=== PATIENT | female | born 1975 | race African-American/Black ===

== ENCOUNTER 2017-12-26 21:43 | Inpatient (IN) | payer SELFPAY ==
[~2017-12-26] VITALS: Ht 165.1 cm; Wt 76.2 kg
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
[2017-12-26] MEDS ORDERED: IV RINGERS SOLUTION,LACTATED 1,000 ML IV SCH (22:00)
--- NOTE | 2017-12-26 22:12 | EKG ---
[address] [address] Test Date: 2017-12-26 Test Time: 22:08:03 Pat Name: MASON GODOY Department: Room: Gender: F Manager Critical Care Unit: : [id number] Requested By: JOVANNI RAPP Order Number: [id number] Reading MD: Blayne Childress Measurements Intervals [place] Rate: 74 P: 34 MA: 150 QRS: 24 QRSD: 82 T: 32 QT: 398 QTc: 442 Interpretive Statements SINUS RHYTHM Electronically Signed On 12-28-2017 11:09:41 CDT by Blayne Childress
[2017-12-26] MEDS ORDERED: MAGNESIUM HYDROXIDE 2,400 MG/30 ML ORAL.SUSP. PO ONE (22:15)
[2017-12-26] MEDS ORDERED: FAMOTIDINE 20 MG/2 ML VIAL IVP ONE (22:15)
[2017-12-26] MEDS ORDERED: ONDANSETRON PF 4 MG/2 ML VIAL. IV ONE (22:15)
[2017-12-26 22:33] LABS: BILIRUBIN,URINE NEG (NEG); CLARITY,URINE CLOUDY; COLOR,URINE STRAW; GLUCOSE,URINE NEG (NEG); NITRITE,URINE NEG (NEG); UROBILINOGEN,URINE 0.2 mg/dL (0.2 mg/dL); WBC,URINE 20-40 /HPF (0-4)
[2017-12-26 22:34] LABS: BACTERIA,URINE FEW /HPF (0-FEW); SQUAMOUS EPITHELIAL CELL,UR FEW /LPF
[2017-12-26 22:42] LABS: BASO % 1 % (0-3); EOS % 1 % (0-3); HEMATOCRIT 39.1 % (36.0-47.0); LYMPH # 1.7 x10^3/uL (1.0-4.8); LYMPH % 42 % (24-48); MEAN CORPUSCULAR HEMOGLOBIN 31 pg (25-35); MEAN CORPUSCULAR HGB CONC 33 g/dL (31-37); MEAN CORPUSCULAR VOLUME 92 fL (79-100); MONO # 0.5 x10^3/uL (0.0-1.1); MONO % 12 % (0-9); NEUT # 1.8 x10^3uL (1.8-7.7); NEUT % 45 % (31-73); PLATELET COUNT 342 x10^3/uL (140-400); RED BLOOD COUNT 4.24 x10^6/uL (3.50-5.40); RED CELL DISTRIBUTION WIDTH 16.7 % (11.5-14.5); WHITE BLOOD COUNT 4.1 x10^3/uL (4.0-11.0)
[2017-12-26] MEDS ORDERED: FOLIC ACID 5 MG/ML SYRINGE for ER IV ONE (22:49)
[2017-12-26] MEDS ORDERED: MVI, ADULT NO.4 WITH VIT K 10 ML VIAL IV ONE (22:49)
[2017-12-26] MEDS ORDERED: THIAMINE 200 MG/2 ML VIAL. IV ONE (22:49)
[2017-12-26 22:57] LABS: AMPHETAMINE/METHAMPHETAMINE NEG (NEG); BARBITURATES NEG (NEG); BENZODIAZEPINES NEG (NEG); CANNABINOIDS NEG (NEG); COCAINE POS (NEG); METHADONE NEG (NEG); OPIATES NEG (NEG); PHENCYCLIDINE NEG (NEG)
[2017-12-26 22:58] LABS: ALBUMIN 3.6 g/dL (3.4-5.0); CALCIUM 9.1 mg/dL (8.5-10.1); CREATININE 1.2 mg/dL (0.6-1.0); DIRECT BILIRUBIN 0.1 mg/dL (0.0-0.2); GFR 59.3; TOTAL BILIRUBIN 0.1 mg/dL (0.2-1.0); TOTAL PROTEIN 7.3 g/dL (6.4-8.2)
[2017-12-26] MEDS ORDERED: MVI, ADULT NO.4 WITH VIT K 10 ML, FOLIC ACID SYRINGE for ER 1 MG, THIAMINE INJ 100 MG i... IV ONE ×4 (23:00)
[2017-12-26] MEDS ORDERED: MORPHINE SULFATE 10 MG/ML SYRINGE. SQ ONE (23:30)
[2017-12-26] MEDS ORDERED: cefTRIAXone IM 1 GM VIAL IM ONE (23:30)
[2017-12-26] MEDS ORDERED: IOHEXOL 240 MG/ML 50ML VIAL. ONE (23:35)
[2017-12-26] MEDS ORDERED: ONDANSETRON PF 4 MG/2 ML VIAL. IV PRN (23:45)
[2017-12-26] MEDS ORDERED: MORPHINE SULFATE 10 MG/ML SYRINGE. SQ PRN (23:45)
[2017-12-27] MEDS ORDERED: LORazepam 2 MG/ML VIAL IV PRN
[2017-12-27] MEDS ORDERED: IOHEXOL 300 MG/ML 75 ML VIAL. IV ONE (00:30)
[2017-12-27] MEDS ORDERED: IOHEXOL 240 MG/ML 50ML VIAL. PO ONE (00:30)
--- NOTE | 2017-12-27 01:33 | RAD ---
PQRS Compliance statement: One or more of the following individualized dose reduction techniques were utilized for this examination: 1. Automated exposure control. 2. Adjustment of the mA and/or kV according to patient size. 3. Use of iterative reconstruction technique. Indication:abdominal pain, constipation TECHNIQUE: CT abdomen and pelvis with IV contrast with multiplanar reformats. COMPARISON: None FINDINGS: Heart is normal in size. No pericardial or pleural effusion. Clear lung bases. Liver, spleen, gallbladder, pancreas, adrenals and kidneys are within normal limits. No enlarged retroperitoneal or pelvic adenopathy. Small fat-containing right inguinal hernia. No free pelvic fluid or ascites. No bowel obstruction. Normal appendix. Omental fat-containing epigastric hernia is seen with neck measuring 1.7 cm with. The hernia sac measures 3.3 x 1.3 cm. Anteverted uterus. Urinary bladder within normal limits., Shape low attenuating lesion is seen in the right aspect of the urethra most likely a urethral diverticulum. There is short segment narrowing of the proximal transverse colon without pericolic inflammatory changes. No suspicious bony lesion. IMPRESSION: 1. Small epigastric hernia containing omental fat. 2. Short segment narrowing of the proximal transverse colon most likely secondary to suboptimal distention although mild colitis not ruled out. 3. Urethral diverticulum. Electronically signed by: Gabriel Soto DO (12/27/2017 1:30 AM) [facility]
[2017-12-27] MEDS: IV RINGERS SOLUTION,LACTATED 1,000 ML IV SCH ×3 (02:15→12:30)
[2017-12-27 03:00] VITALS: BP 188/80
--- NOTE | 2017-12-27 03:53 | NUR ---
The patient, MASON GODOY, 42 y/o, F admitted by GIL MALLORY MD, was given written information regarding hospital policies, unit procedures and contact persons. Patient stated that she started to have abdominal pain in her lower abdomen yesterday. She had ate a lot of tacos prior to coming to hospital and reports drinking a liter of gin. Patient stated that she drinks almost every day and has for the last 10 years. Patient denies ever having withdrawl symptoms. Orders reviewed. Belongings with patient. Will continue to monitor. Valuables were checked and left with patient.
[2017-12-27] MEDS ORDERED: ACET325T9 PO (03:56)
[2017-12-27] MEDS ORDERED: IBUP400T18 PO (03:57)
[2017-12-27 05:58] VITALS: BP 152/72
[2017-12-27 06:27] LABS: BASO # 0.1 x10^3/uL (0.0-0.2); BASO % 2 % (0-3); EOS # 0.1 x10^3/uL (0.0-0.7); EOS % 2 % (0-3); HEMATOCRIT 39.5 % (36.0-47.0); LYMPH # 2.2 x10^3/uL (1.0-4.8); LYMPH % 47 % (24-48); MEAN CORPUSCULAR HEMOGLOBIN 31 pg (25-35); MEAN CORPUSCULAR HGB CONC 33 g/dL (31-37); MEAN CORPUSCULAR VOLUME 93 fL (79-100); MONO # 0.6 x10^3/uL (0.0-1.1); MONO % 13 % (0-9); NEUT # 1.7 x10^3uL (1.8-7.7); NEUT % 37 % (31-73); PLATELET COUNT 341 x10^3/uL (140-400); RED BLOOD COUNT 4.25 x10^6/uL (3.50-5.40); RED CELL DISTRIBUTION WIDTH 16.8 % (11.5-14.5); WHITE BLOOD COUNT 4.7 x10^3/uL (4.0-11.0)
[2017-12-27 06:31] LABS: CALCIUM 8.4 mg/dL (8.5-10.1); GFR 73.2; POTASSIUM 3.7 mmol/L (3.5-5.1)
[2017-12-27] MEDS ORDERED: IPRATRPIUM/ALBUTEROL 0.5/2.5MG 3 ML NEBU. NEB SCH (08:00)
--- NOTE | 2017-12-27 08:33 | RAD ---
Acute abdomen series with chest, 12/26/2017: HISTORY: Lower abdominal pain, constipation Surgical clips overlie the left midabdomen. Gas is present in large and small bowel without significant bowel distention. A couple of small, scattered nonspecific air-fluid levels are noted. No free air seen in the abdomen. There is no evidence organomegaly. There is a sclerotic focus in the right iliac bone most compatible with a bone island. The heart is mildly enlarged. The pulmonary vascularity is normal. No pulmonary infiltrate is seen. There is no evidence of pleural fluid. IMPRESSION: 1. Several small scattered air-fluid levels in the GI tract may reflect a mild ileus. 2. Postsurgical change in the left midabdomen. Electronically signed by: Oscar Tillman MD (12/27/2017 8:30 AM) [facility]
[2017-12-27] MEDS ORDERED: MVI, ADULT NO.4 WITH VIT K 10 ML, FOLIC ACID SYRINGE for ER 1 MG, THIAMINE INJ 100 MG i... IV SCH ×4 (09:00)
[2017-12-27] MEDS ORDERED: FAMOTIDINE 20 MG/2 ML VIAL IVP SCH (09:00)
[2017-12-27] MEDS ORDERED: NICOTINE 14MG PATCH. TD SCH (09:00)
[2017-12-27] MEDS: LORazepam 2 MG/ML VIAL IV SCH ×3 (10:25→17:00)
[2017-12-27 11:37] VITALS: BP 172/114
--- NOTE | 2017-12-27 11:52 | NUR ---
Elevated Blood Pressure Notified by [employer] of bp elevation. No standing BP medication orders at this time, attempted to contact Dr. Buck via cell and office phone with no success. Patient denies headache, double vision, or other concerns at this time. Will administer 2mg Ativan as regularly scheduled and recheck the blood pressure. Will continue to closely monitor and attempt to contact the MD.
[2017-12-27 12:01] VITALS: BP 170/76
[2017-12-27 12:06] VITALS: BP 166/82
--- NOTE | 2017-12-27 12:54 | NUR ---
Blood Pressure Management Rechecked patient's blood pressure after administering 2mg Ativan per standing order. Attempted to contact the MD via cellphone at [phone] but was unsuccessful. Patient is in bed asleep, no other change in status. Will continue to monitor and attempt to contact the doctor. Addendum: 12/27/17 at 1637 by JAMISON SÁNCHEZ RN Continued BP management Discussed patient's blood pressure with MD. No new orders for BP treatment received at this time. Patient remains asymptomatic of HTN problems. Will continue to monitor.
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
--- NOTE | 2017-12-27 18:03 | NUR ---
Discharge Note: ALESSIA GODOY Discharge instructions and discharge home medications reviewed with Patient and a copy given. All questions have been answered and understanding verbalized. The following instructions and handouts were given: Alcohol intoxication, pancreatitis, medication use, follow up instructions, and stroke education Discontinued lines and drains: IV discontinued Patient discharged to home with friend via private vehicle
[2017-12-27] MEDS ORDERED: cefTRIAXone IV Push 1 GM VIAL. IVP SCH (21:00)
[2017-12-27] MEDS ORDERED: LACTOBACILLUS RHAMNOSUS GG 1 CAPSULE. PO SCH (21:00)
== END 2017-12-27 18:00 | disposition home or self-care (01) | DRG 439 ==
LOC: ER 21:43 → 1 SOUTH 23:30
PROVIDERS: ADMIT Internal Medicine; ATTEND Internal Medicine
DX: K85.90 Acute pancreatitis without necrosis or infection, unspecified (principal); N39.0 Urinary tract infection, site not specified; K59.00 Constipation, unspecified; F10.10 Alcohol abuse, uncomplicated; Y90.8 Blood alcohol level of 240 mg/100 ml or more; F14.10 Cocaine abuse, uncomplicated; K29.70 Gastritis, unspecified, without bleeding; N36.1 Urethral diverticulum; K43.9 Ventral hernia without obstruction or gangrene; F17.210 Nicotine dependence, cigarettes, uncomplicated
CPT/HCPCS: 36415; 74022; 74177; 80048; 80076; 80307; 81001; 81025; 82150; 82550; 83690; 84484; 85025; 85610; 85730; 87086; 87491; 87591; 93005; 96365; 96372; 96375; G0480; J0696; J2060; J2270; J2405; J7120; Q9966; Q9967; S0028; 99285-25; G0479

== ENCOUNTER 2018-10-20 09:20 | Emergency (ER) | payer SELFPAY ==
[~2018-10-20 09:20] MED LIST: ACET325T9 PO; IBUP400T18 PO
[2018-10-20 09:31] VITALS: BP 143/100
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
--- NOTE | 2018-10-20 10:29 | RAD ---
Chest radiograph 10/20/2018 10:04 AM INDICATION: Hemoptysis COMPARISON: None available TECHNIQUE: Frontal view of the chest is provided. FINDINGS: The cardiomediastinal silhouette is within normal limits. There are no pleural effusions. There is no pulmonary vascular congestion. There is no pneumothorax. The lungs are clear. No significant osseous abnormality is identified. IMPRESSION: No acute cardiopulmonary process. Electronically signed by: Carole Helms MD (10/20/2018 10:25 AM) [id number]
[2018-10-20 10:49] LABS: BASO # 0.1 x10^3/uL (0.0-0.2); BASO % 2 % (0-3); EOS % 0 % (0-3); HEMATOCRIT 32.5 % (36.0-47.0); HEMOGLOBIN 10.7 g/dL (12.0-15.5); LYMPH # 1.7 x10^3/uL (1.0-4.8); LYMPH % 32 % (24-48); MEAN CORPUSCULAR HEMOGLOBIN 31 pg (25-35); MEAN CORPUSCULAR HGB CONC 33 g/dL (31-37); MEAN CORPUSCULAR VOLUME 95 fL (79-100); MONO # 0.5 x10^3/uL (0.0-1.1); MONO % 9 % (0-9); NEUT % 56 % (31-73); PLATELET COUNT 286 x10^3/uL (140-400); RED BLOOD COUNT 3.41 x10^6/uL (3.50-5.40); WHITE BLOOD COUNT 5.3 x10^3/uL (4.0-11.0)
[2018-10-20 11:01] LABS: ALBUMIN 2.5 g/dL (3.4-5.0); ALBUMIN/GLOBULIN RATIO 0.6 (1.0-1.7); CREATININE 1.4 mg/dL (0.6-1.0); GFR 49.7; TOTAL BILIRUBIN 0.6 mg/dL (0.2-1.0); TOTAL PROTEIN 6.7 g/dL (6.4-8.2)
[2018-10-20 11:03] LABS: POTASSIUM 3.6 mmol/L (3.5-5.1)
[2018-10-20] MEDS ORDERED: IOHEXOL 300 MG/ML 75 ML VIAL. IV ONE (11:30)
[2018-10-20 12:02] LABS: BARBITURATES NEG (NEG); BENZODIAZEPINES NEG (NEG); CANNABINOIDS NEG (NEG); COCAINE POS (NEG); METHADONE NEG (NEG); OPIATES NEG (NEG); PHENCYCLIDINE NEG (NEG)
[2018-10-20 12:04] LABS: AMPHETAMINE/METHAMPHETAMINE NEG (NEG)
[2018-10-20 12:17] LABS: BILIRUBIN,URINE NEG (NEG); CLARITY,URINE TURBID; COLOR,URINE YELLOW; GLUCOSE,URINE NEG (NEG); NITRITE,URINE NEG (NEG); UROBILINOGEN,URINE 1 mg/dL (0.2 mg/dL); WBC,URINE >40 /HPF (0-4)
[2018-10-20 12:18] LABS: BACTERIA,URINE MANY /HPF (0-FEW); SQUAMOUS EPITHELIAL CELL,UR FEW /LPF
--- NOTE | 2018-10-20 12:22 | RAD ---
PQRS Compliance Statement: One or more of the following individualized dose reduction techniques were utilized for this examination: 1. Automated exposure control 2. Adjustment of the mA and/or kV according to patient size 3. Use of iterative reconstruction technique CT abdomen/pelvis with contrast 10/20/2018 11:19 AM INDICATION: Elevated liver function tests. Weight loss. COMPARISON: CT abdomen/pelvis December 27, 2017 TECHNIQUE: Multiple axial CT images of the abdomen and pelvis were obtained after the intravenous administration of 60 mL Isovue-370. Coronal and sagittal reformats are provided. FINDINGS: Lung bases are clear. Heart size is within normal limits. There is diffuse hypoattenuation of the hepatic parenchyma suggestive of hepatic steatosis. There is more focal fatty infiltration along the gallbladder fossa in the fissure of ligamentum teres. Portal venous system is widely patent. Gallbladder is present. No intrahepatic or extra hepatic biliary ductal dilatation. Spleen, bilateral glands and pancreas are normal in appearance. The abdominal aorta is normal in course and caliber. There are no pathologically enlarged lymph nodes in the abdomen and pelvis. There is no abdominal free fluid. There is no free intraperitoneal air. Postsurgical changes are identified in the left ventral abdomen. Small and large bowel are normal in caliber. There is no evidence for bowel obstruction. There are no pericolonic inflammatory changes. A normal, nondilated appendix is visualized without adjacent inflammatory changes. The kidneys enhance symmetrically. There is no suspicious renal mass. There is no hydronephrosis. There are no suspected calculi within the kidneys, ureters or urinary bladder. Urinary bladder is within normal limits given degree of distention. There is suggestion of a pessary within the vagina. No suspicious osseous abnormality is identified. IMPRESSION: 1. Hypoattenuation the hepatic parenchyma suggestive of hepatic steatosis. There is no focal fatty infiltration along the gallbladder fossa and fissure of the ligamentum teres. No suspicious hepatic masses are identified. 2. No evidence for bowel obstruction or inflammation. 3. Cystic density within the vagina may represent a pessary measuring 3 x 2.5 cm. Correlation with history or physical examination may be of benefit. Electronically signed by: Carole Helms MD (10/20/2018 12:19 PM) [id number]
[2018-10-20] MEDS ORDERED: CEPH500C PO (12:36)
[2018-10-20] MEDS ORDERED: IV NORMAL SALINE 50ML 50 ML ONE (13:06)
[2018-10-20] MEDS ORDERED: cefTRIAXone SODIUM 1 GM VIAL ONE (13:06)
[2018-10-20] MEDS ORDERED: AZITHROMYCIN 250 MG TABLET. PO ONE (13:15)
[2018-10-21 19:11] LABS: CHLAMYDIA PROBE Negative (Negative)
== END 2018-10-20 13:36 | disposition home or self-care (01) ==
LOC: ER 09:20
DX: N39.0 Urinary tract infection, site not specified (principal); R63.4 Abnormal weight loss; F17.210 Nicotine dependence, cigarettes, uncomplicated
CPT/HCPCS: 36415; 71045; 74177; 80053; 80307; 81001; 81025; 83690; 85025; 87086; 87491; 87591; 96365; 99285; J0456; J0696; Q0111; Q9967; 87186

== ENCOUNTER 2019-04-06 06:29 | Emergency (ER) | payer SELFPAY ==
[~2019-04-06] VITALS: Ht 165.1 cm; Wt 49.0 kg
[~2019-04-06 06:29] MED LIST changes: +CEPH500C PO
--- NOTE | 2019-04-06 06:57 | PHYS DOC ---
Past History Past Medical History: No Pertinent History Past Surgical History: Other Smoking: Cigarettes Alcohol Use: None Drug Use: None Adult General HPI HPI Patient is a 43-year-old male who was brought here by EMS for evaluation of feeling woozy and stinging sensation around her mouth after she got out of the shower this morning. She felt thirsty, wanted to drink some ice water. Patient denies any history of diabetes, no history of heart problem. Patient denies any headache, no speech problem, no weakness anywhere. Patient admitted to drinking alcohol last night. Patient denied abdominal pain, no nausea vomiting, no back pain, no chest pain. She denies suicidal ideation. Patient felt much better now. All other ROS is negative unless otherwise noted in HPI Review of Systems Review of Systems See above Allergies Allergies Allergies Coded Allergies Type Severity Reaction Last Updated Verified I S O L A T I O N *CONTACT* Allergy Unknown 02/08/19 Yes NKMA Allergy Unknown 02/08/19 Yes Physical Exam Physical Exam See above Constitutional: Well developed, well nourished, no acute distress, non-toxic appearance. [] HENT: Normocephalic, atraumatic, bilateral external ears normal, oropharynx moist, no oral exudates, nose normal. [] Eyes: PERRLA, EOMI, conjunctiva normal, no discharge. [] Neck: Normal range of motion, no tenderness, supple, no stridor. [] Cardiovascular:Heart rate regular rhythm, no murmur [] Lungs & Thorax: Bilateral breath sounds clear to auscultation [] Abdomen: Bowel sounds normal, soft, no tenderness, no masses, no pulsatile masses. [] Skin: Warm, dry, no erythema, no rash. [] Back: No tenderness, no CVA tenderness. [] Extremities: No tenderness, no cyanosis, no clubbing, ROM intact, no edema. [] Neurologic: Alert and oriented X 3, normal motor function, normal sensory function, no focal deficits noted. [] Psychologic: Affect normal, judgement normal, mood normal. [] EKG EKG [] Radiology/Procedures Radiology/Procedures [] Course & Med Decision Making Course & Med Decision Making Pertinent Labs and Imaging studies reviewed. (See chart for details) [] Dragon Disclaimer Dragon Disclaimer This electronic medical record was generated, in whole or in part, using a voice recognition dictation system. Departure Departure: Impression: Primary Impression: Anxiety Disposition: HOME, SELF-CARE Condition: STABLE Referrals: PCP,NO (PCP) follow up with your doctor this week as needed. Patient Instructions: Anxiety and Panic Attacks SUZANNE JOSHI DO Apr 06, 2019 06:57
[2019-04-06 07:15] VITALS: BP 150/103
== END 2019-04-06 07:15 | disposition home or self-care (01) ==
LOC: ER 06:29
DX: F41.9 Anxiety disorder, unspecified (principal); F17.210 Nicotine dependence, cigarettes, uncomplicated; Z91.041 Radiographic dye allergy status
CPT/HCPCS: 99283

== ENCOUNTER 2019-06-23 00:12 | Emergency (ER) | payer SELFPAY ==
[~2019-06-23] VITALS: Ht 165.1 cm; Wt 59.0 kg
--- NOTE | 2019-06-23 01:06 | PHYS DOC ---
Past History Past Medical History: Anxiety Past Surgical History: No Surgical History Smoking: Cigarettes Alcohol Use: Heavy Drug Use: None Adult General Chief Complaint Chief Complaint: "... I got my thumb cut...."" .. I was cutting a potato"... HPI HPI Patient is a 43 year old female who presents with above hx and complaints of Lt thumb laceration. He has a very slight 1 cm laceration to left thumb. Distal neurovascular intact. Patient is right-hand dominant. Does not remember her last tetanus. No history immunosuppression. No history of recent travel outside the [facility]. No history of recent ill contacts. 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 Pt. Follows at [facility]. Review of Systems Review of Systems Constitutional: Denies fever or chills [] Eyes: Denies change in visual acuity, redness, or eye pain [] HENT: Denies nasal congestion or sore throat [] Respiratory: Denies cough or shortness of breath [] Cardiovascular: No additional information not addressed in HPI [] GI: Denies abdominal pain, nausea, vomiting, bloody stools or diarrhea [] : Denies dysuria or hematuria [] Musculoskeletal: Denies back pain or joint pain [] Integument: Denies rash or skin lesions []Pt. complaints of left thumb laceration as per history of present illness Neurologic: Denies headache, focal weakness or sensory changes [] Endocrine: Denies polyuria or polydipsia [] All other systems were reviewed and found to be within normal limits, except as documented in this note. Family History Family History Noncontributory to presentation Current Medications Current Medications See nursing for home meds Allergies Allergies Allergies Coded Allergies Type Severity Reaction Last Updated Verified I S O L A T I O N *CONTACT* Allergy Unknown 02/08/19 Yes NKMA Allergy Unknown 02/08/19 Yes Physical Exam Physical Exam Constitutional: no acute distress, non-toxic appearance. [] HENT: Normocephalic, atraumatic, bilateral external ears normal, oropharynx moist, no oral exudates, nose normal. [] Eyes: PERRLA, EOMI, conjunctiva normal, no discharge. [] Neck: Normal range of motion, no tenderness, supple, no stridor. [] Cardiovascular:Heart rate regular rhythm, no murmur [] Lungs & Thorax: Bilateral breath sounds equal apex with scattered wheezes on auscultation [] Abdomen: Bowel sounds normal, soft, no tenderness, no masses, no pulsatile masses. [] Skin: Warm, dry, no erythema, no rash. [] Back: No tenderness, no CVA tenderness. [] Extremities: No tenderness, no cyanosis, no clubbing, ROM intact, no edema. [] Neurologic: Alert and oriented X 3, normal motor function, normal sensory function, no focal deficits noted. [] Psychologic: Affect normal, judgement normal, mood normal. [] EKG EKG [] Radiology/Procedures Radiology/Procedures [] Course & Med Decision Making Course & Med Decision Making Pertinent Labs and Imaging studies reviewed. (See chart for details) Laceration repair- patient washed the wound with surgical soap.. I re- irrigated laceration and applied Betadine. Applied Dermabond. Applied dressing. Patient advised not to apply antibiotic ointment to laceration because it with dissolve the Dermabond. Keep laceration clean and dry. Wear dressing when working. Return if any concerns. Patient's tetanus is updated. Patient encouraged to stop smoking. Patient encouraged to reduce alcohol intake. Impression: 1. Laceration 1 cm Lt. thumb 2. Tobacco Use 3. ETOH use. [] Dragon Disclaimer Dragon Disclaimer This electronic medical record was generated, in whole or in part, using a voice recognition dictation system. Departure Departure: Disposition: 01 HOME/RESIDENCE PRIOR TO ADM Condition: STABLE Referrals: [facility] (PCP) Bianca Disclaimer This chart was dictated in whole or in part using Voice Recognition software in a busy, high-work load, and often noisy Emergency Department environment. It may contain unintended and wholly unrecognized errors or omissions. JOVANNI RAPP MD Jun 23, 2019 01:06
[2019-06-23 01:15] VITALS: BP 155/81
[2019-06-23] MEDS ORDERED: DIPH,PERTUSS(ACELL),TET VAC/PF 0.5 ML SYRINGE. VAX IM ONE (03:00)
[2019-06-23] MEDS ORDERED: TETANUS AND DIPHTHERIA TOX/PF 0.5 ML VIAL. VAX IM ONE (03:00)
== END 2019-06-23 03:40 | disposition home or self-care (01) ==
LOC: ER 00:12
DX: S61.012A Laceration without foreign body of left thumb without damage to nail, initial encounter (principal); F17.210 Nicotine dependence, cigarettes, uncomplicated; F10.20 Alcohol dependence, uncomplicated; Z91.041 Radiographic dye allergy status; Y90.9 Presence of alcohol in blood, level not specified; W26.0XXA Contact with knife, initial encounter; Y93.89 Activity, other specified; Y92.89 Other specified places as the place of occurrence of the external cause; Y99.8 Other external cause status
CPT/HCPCS: 12001; 90471; 90715; 99283

== ENCOUNTER 2020-01-20 10:58 | Emergency (ER) | payer SELFPAY ==
[~2020-01-20] VITALS: Ht 165.1 cm; Wt 59.0 kg
[2020-01-20 11:00] VITALS: BP 168/93
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
[2020-01-20] MEDS: OXYMETAZOLINE 0.05% NASAL SPRAY 30ML BOTTLE. NS ONE (11:57)
== END 2020-01-20 12:31 | disposition home or self-care (01) ==
LOC: ER 10:58
DX: R04.0 Epistaxis (principal); I10 Essential (primary) hypertension; F17.210 Nicotine dependence, cigarettes, uncomplicated; Z86.2 Personal history of diseases of the blood and blood-forming organs and certain disorders involving the immune mechanism; Z91.041 Radiographic dye allergy status
CPT/HCPCS: 99282

== ENCOUNTER 2020-01-20 16:14 | Emergency (ER) | payer SELFPAY ==
[~2020-01-20] VITALS: Ht 165.1 cm; Wt 59.0 kg
[2020-01-20] MEDS ORDERED: TRANEXAMIC ACID 1,000 MG/10 ML VIAL. ONE (17:00)
[2020-01-20] MEDS ORDERED: TRANEXAMIC ACID 1,000 MG/10 ML VIAL. TOP ONE (17:30)
[2020-01-20] MEDS: IV NORMAL SALINE 1,000ML 1,000 ML IV ONE (17:30)
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
[2020-01-20 17:57] LABS: CALCIUM 9.1 mg/dL (8.5-10.1); CREATININE 1.2 mg/dL (0.6-1.0); GFR 58.8; POTASSIUM 3.7 mmol/L (3.5-5.1)
[2020-01-20 17:59] LABS: BILIRUBIN,URINE NEG (NEG); CLARITY,URINE HAZY; COLOR,URINE YELLOW; GLUCOSE,URINE NEG (NEG)
[2020-01-20 18:00] VITALS: BP 166/89
[2020-01-20 18:00] LABS: NITRITE,URINE NEG (NEG); UROBILINOGEN,URINE 0.2 mg/dL (0.2 mg/dL)
[2020-01-20 18:03] LABS: ALBUMIN 3.5 g/dL (3.4-5.0); ALBUMIN/GLOBULIN RATIO 0.7 (1.0-1.7); BASO # 0.2 x10^3/uL (0.0-0.2); BASO % 3 % (0-3); EOS # 0.1 x10^3/uL (0.0-0.7); EOS % 1 % (0-3); HEMATOCRIT 37.3 % (36.0-47.0); HEMOGLOBIN 11.8 g/dL (12.0-15.5); LYMPH # 2.3 x10^3/uL (1.0-4.8); LYMPH % 31 % (24-48); MEAN CORPUSCULAR HEMOGLOBIN 29 pg (25-35); MEAN CORPUSCULAR HGB CONC 32 g/dL (31-37); MEAN CORPUSCULAR VOLUME 92 fL (79-100); MONO # 0.6 x10^3/uL (0.0-1.1); MONO % 9 % (0-9); NEUT # 4.1 x10^3uL (1.8-7.7); NEUT % 56 % (31-73); PLATELET COUNT 256 x10^3/uL (140-400); RED BLOOD COUNT 4.04 x10^6/uL (3.50-5.40); RED CELL DISTRIBUTION WIDTH 14.4 % (11.5-14.5); TOTAL BILIRUBIN 1.1 mg/dL (0.2-1.0); TOTAL PROTEIN 8.4 g/dL (6.4-8.2); WHITE BLOOD COUNT 7.2 x10^3/uL (4.0-11.0)
[2020-01-20 18:04] LABS: BARBITURATES NEG (NEG); BENZODIAZEPINES NEG (NEG); CANNABINOIDS POS (NEG); COCAINE POS (NEG); METHADONE NEG (NEG); OPIATES NEG (NEG); PHENCYCLIDINE NEG (NEG); U PREG PATIENT NEGATIVE (NEG)
[2020-01-20 18:05] LABS: WBC,URINE TNTC /HPF (0-4)
[2020-01-20 18:06] LABS: BACTERIA,URINE MANY /HPF (0-FEW); SQUAMOUS EPITHELIAL CELL,UR FEW /LPF
[2020-01-20 18:14] LABS: AMPHETAMINE/METHAMPHETAMINE NEG (NEG)
== END 2020-01-20 20:13 | disposition home or self-care (01) ==
LOC: ER 16:14
DX: R04.0 Epistaxis (principal); I10 Essential (primary) hypertension; F17.210 Nicotine dependence, cigarettes, uncomplicated; Z86.2 Personal history of diseases of the blood and blood-forming organs and certain disorders involving the immune mechanism; Z91.041 Radiographic dye allergy status
CPT/HCPCS: 30901; 36415; 80053; 80307; 81001; 81025; 85025; 85610; 85730; 87086; 96360; 96361; 99284; J7030

== ENCOUNTER → 2020-06-25 | Outpatient (CLI) | payer OTHER ==
--- NOTE | 2020-06-25 13:16 | RAD ---
DATE: 06/25/2020 10:50 AM EXAM: DIGITAL SCREEN BILAT W/CAD HISTORY: Screening COMPARISON: None. This is a baseline Bilateral full field craniocaudal and mediolateral oblique images were obtained using digital technique. This study was interpreted with the benefit of Computerized Aided Detection (CAD). FINDINGS: Breast Density: SCATTERED The breast parenchyma shows scattered fibroglandular densities. Breast parenchyma level B No suspicious masses, microcalcifications or architectural distortion is present to suggest malignancy in either breast. The visualized axillae are unremarkable. IMPRESSION: No mammographic evidence of malignancy. BI-RADS CATEGORY: 1 NEGATIVE RECOMMENDED FOLLOW-UP: 12M 12 MONTH FOLLOW-UP Annual screening mammography is recommended, unless clinically indicated sooner based on symptoms or change in physical exam. PQRS compliance statement: Patient information was entered into a reminder system with a target due date for the next mammogram. Mammography is a sensitive method for finding small breast cancers, but it does not detect them all and is not a substitute for careful clinical examination. A negative mammogram does not negate a clinically suspicious finding and should not result in delay in biopsying a clinically suspicious abnormality. "Our facility is accredited by the [employer] Mammography Program."
== END ==
LOC: MAMMO 10:42
PROVIDERS: ATTEND Nurse Practitioner Family
DX: Z12.31 Encounter for screening mammogram for malignant neoplasm of breast (principal)
CPT/HCPCS: 77067